=== PATIENT | male | born 1995 | race Caucasian/White ===

== ENCOUNTER 2024-05-10 17:02 | Inpatient (IN) | payer OTHER ==
[~2024-05-10 17:02] MED LIST: Iopamidol-370 76% 500 ML MDV (1 ML CHARGE) ONE
[2024-05-10] MEDS ORDERED: KETAMINE 100 MG/ML (5ML VIAL) ONE (17:21)
[2024-05-10] MEDS ORDERED: Morphine 2 MG/ML VIAL SLOW IVP PRN (17:33)
[2024-05-10] MEDS ORDERED: Ipratropium/Albuterol 3 ML NEB NEB PRN (17:33)
[2024-05-10] MEDS ORDERED: Boostrix 0.5 ML (Tdap) VIAL (>/=7 yrs of age) ONE (17:33)
[2024-05-10 17:34] LABS: #Basophils 0.07 10x3/uL (0.0-0.2); %Basophils 0.5 % (0.0-1.0); %Eosinophils 3.3 % (0.0-10.0); %Lymphocytes 16.8 % (21.0-51.0); %Monocytes 6.8 % (0.0-10.0); %Neutrophils 72.2 % (42.0-75.0); Hematocrit 46.2 % (42.0-52.0); Hemoglobin 15.3 g/dL (14.0-18.0); Mean Corpuscular HGB CONC 33.1 g/dL (32.0-36.0); Mean Corpuscular Hemoglobin 29.3 pg (27.0-31.0); Mean Corpuscular Volume 88.5 fL (78.0-98.0); Mean Platelet Volume 10.7 fL (7.4-10.4); Platelet Count 298 10x3/uL (130-400); RBC Distribution Width 12.6 % (11.5-14.5); Red Blood Cell (RBC) Count 5.22 mill/uL (4.70-6.10)
[2024-05-10 17:46] LABS: ALT (SGPT) 38 U/L (8-55); AST (SGOT) 24 U/L (5-34); Albumin 4.5 g/dL (3.5-5.0); Alkaline Phosphatase 78 U/L (40-110); Anion Gap 13 mmol/L (10-20); BUN (Urea Nitrogen) 9 mg/dL (8.9-20.6); Bilirubin, Total 0.5 mg/dL (0.2-1.2); Calc. Creatinine Clearance 0 mL/min (70-130); Calcium 9.5 mg/dL (7.8-10.44); Carbon Dioxide 28 mmol/L (22-29); Chloride 103 mmol/L (98-107); Estimated GFR 127; Globulin 3.6 g/dL (2.4-3.5); Glucose 102 mg/dL (70-105); Potassium 3.7 mmol/L (3.5-5.1); Protein, Total 8.1 g/dL (6.0-8.3); Sodium 140 mmol/L (136-145)
[2024-05-10] MEDS ORDERED: fentaNYL 50 mcg/mL 1 mL Vial ONE (17:52)
[2024-05-10 18:03] LABS: Alcohol Less than 10.0 mg/dL (Less than 10); Lipase 10 U/L (8-78)
[2024-05-10] MEDS ORDERED: Ondansetron PF 4 MG/2 ML Vial ONE (18:13)
[2024-05-10 18:18] LABS: PTT 26.1 sec (22.9-36.1); Prothrombin Time 13.4 sec (12.0-14.7)
[2024-05-10] MEDS ORDERED: Promethazine HCl 25 MG/ML VIAL ONE (19:07)
[2024-05-10 20:18] VITALS: BMI 39.6
[2024-05-10 20:24] LABS: Bacteria/HPF None Seen HPF (None Seen); Bilirubin Negative (Negative); Blood, Urine Negative (Negative); CAUTI Indications for Culture Acute Hematuria; Clarity Clear (Clear); Glucose, Urine (Dipstick) Normal (Negative); Ketone, Urine Negative (Negative); Leukocyte Negative Leu/uL (Negative); Nitrite Negative (Negative); Protein, Urine (Dipstick) Negative (Neg-Trace); RBC/HPF None Seen HPF (0-3); Squamous Epithelial None Seen HPF (0-3); Urobilinogen Normal mg/dL (Less than 2); WBC/HPF None Seen HPF (0-3); pH, Urine 7.5 (5.0-9.0)
[2024-05-10 20:25] LABS: Specific Gravity, Urine 1.056 (1.002-1.036)
[2024-05-10 20:26] LABS: Urine Culture Reflex No No
[2024-05-10] MEDS: Ibuprofen 600 MG TAB PO SCH (20:27)
[2024-05-10] MEDS: Methocarbamol 500 MG TAB PO PRN (20:27)
[2024-05-10] MEDS: traMADol HCl 50 MG TAB PO SCH (20:27)
[2024-05-10] MEDS: Acetaminophen 325 MG TAB PO SCH (20:28)
[2024-05-10] MEDS: TETANUS, DIPHTHERIA TOX,ADULT (TDVAX) 0.5 ML VIAL IM ONE (20:28)
[2024-05-10] MEDS: Sodium Chloride 0.9% 1,000 ML IV SCH (20:28)
[2024-05-10 20:29] LABS: Amphetamine Not Detected (NotDetected); Benzodiazepine Screen Not Detected (NotDetected); Cocaine Metabolite Screen Not Detected (NotDetected); Methamphetamine Not Detected (NotDetected); Opiate Screen Detected (NotDetected); Phencyclidine (PCP) Not Detected (NotDetected); THC/Cannabinoid Screen Detected (NotDetected); Tricyclic Screen Not Detected (NotDetected)
[2024-05-10] MEDS: traMADol HCl 50 MG TAB PO PRN (20:29)
[2024-05-10 20:30] LABS: Barbiturates Screen Not Detected (NotDetected); Methadone Not Detected (NotDetected); Oxycodone Screen Not Detected (NotDetected)
[2024-05-10] MEDS: Ondansetron PF 4 MG/2 ML Vial IVP PRN (20:35)
[2024-05-10] MEDS: Morphine 4 MG/ML VIAL SLOW IVP PRN (20:35)
[2024-05-10] MEDS: fentaNYL 50 mcg/mL 1 mL Vial SLOW IVP SCH (22:13)
[2024-05-11] MEDS: fentaNYL 50 mcg/mL 1 mL Vial SLOW IVP SCH (05:18)
[2024-05-11] MEDS ORDERED: CEFAZOLIN 2 GM in Sodium Chloride 0.9% 100 ML IVPB SCH ×2 (08:15→22:00)
[2024-05-11] MEDS: HYDROcodone/Acetaminophen 5/325 mg Tablet PO PRN (08:59)
[2024-05-11] MEDS ORDERED: Acetaminophen/Codeine 30-300mg Tablet PO PRN (10:13)
[2024-05-11] MEDS ORDERED: Midazolam HCl 2 mg/2 ml Vial ONE (11:15)
[2024-05-11] MEDS ORDERED: fentaNYL 50 mcg/mL 1 mL Vial ONE ×2 (11:15→12:36)
[2024-05-11] MEDS ORDERED: Bupivacaine PF 0.5% 30 ML VIAL ONE (11:15)
[2024-05-11] MEDS ORDERED: Bupivacaine HCl 0.5%/Epinephrine 1:200,000/PF 30 ml Vial ONE (11:50)
[2024-05-11] MEDS ORDERED: CEFAZOLIN 2 GM VIAL ONE (12:14)
[2024-05-11] MEDS ORDERED: PROPOFOL 20 ML ONE (12:28)
[2024-05-11] MEDS ORDERED: Ondansetron PF 4 MG/2 ML Vial ONE (12:29)
[2024-05-11] MEDS ORDERED: Lidocaine 1% PF 5 ML VIAL ONE (12:29)
[2024-05-11] MEDS ORDERED: Ketorolac Tromethamine 30 MG (1 mL) VIAL ONE (13:56)
[2024-05-11] MEDS ORDERED: fentaNYL PF 100 MCG/2 ML SYRINGE ONE (14:46)
[2024-05-11 18:12] VITALS: BP 131/73; TEMP 98.3
== END 2024-05-11 18:12 | disposition home or self-care (01) | DRG 494 ==
LOC: ERS 17:02 → SURG B 17:36
PROVIDERS: ADMIT Specialist; ATTEND Specialist
PROC: 0SSG04Z Reposition Left Ankle Joint with Internal Fixation Device, Open Approach (ICD-10-PCS; principal; 2024-05-11)
DX: S82.402A Unspecified fracture of shaft of left fibula, initial encounter for closed fracture (principal); V09.9XXA Pedestrian injured in unspecified transport accident, initial encounter; Z79.899 Other long term (current) drug therapy
CPT/HCPCS: 27840; 36415; 70450; 71260; 72125; 74177; 80053; 80306; 80307; 81001; 83690; 85025; 85610; 85730; 86850; 86900; 86901; 90471; 90715; 93005; 94760; 96365; 96375; 99152; C1713; C1874; G0390; J0665; J1885; J2250; J2270; J2405; J2550; J2704; J3010; J7030; Q9967